=== PATIENT | female | born 1975 | race Caucasian/White ===

== ENCOUNTER → 2016-06-09 | Outpatient (CLI) | payer OTHER ==
[~2016-06-09] MED LIST: FAMO20TA13 PO; LEVO1TAB10 PO; PRED20TA PO
[2016-06-09 19:44] VITALS: BP 128/76
--- NOTE | 2016-06-09 19:44 | Urgent Care T Sheet Gen (E) ---
Intake General Temperature (Fahrenheit): 97.8 Pulse: 104 Blood Pressure Systolic: 128 Blood Pressure Diastolic: 76 Respirations: 97 Chief Complaint: cough Source: Patient History of Present Illness Initial Comments Pt notes sudden onset of cough and fever on Wednesday. Notes body aches. Cough keeping her awake at night. Has also been congested. She is a smoker and notes her cough is a tight barky like cough. Occasional wheezing. Taking NyQuil with no relief. No SOA. Allergies: Coded Allergies: No Known Allergies (Verified Allergy, 01/22/12) Home Meds Reported Medications Levonorgestrel-Eth Estradiol (Enpresse)1 Each Tablet1 Each PO DAILY 01/22/12 Famotidine (Pepcid)20 Mg [id number] Mg PO BID 01/22/12 Respiratory Constitutional Symptoms: See HPI Fever Malaise EENTM: See HPI Nose Congestion Respiratory: No No symptoms reported, See HPI CoughNo Orthopnea, No Short of breath, No Stridor, WheezingNo Other Cardiovascular: No symptoms reported Gastrointestinal/Abdominal: No symptoms reported Genitourinary: No symptoms reported Skin: No symptoms reported All Other Systems Reviewed Remaining Systems: All other systems reviewed with negative findings Past Vpbblsd-Jztmhk-Bsmieb Hx Patient's Social History Alcohol Use: Occasionally Uses Smoking Status: Current every day smoker Surgeries/Hospitalizations Hospitalization/Surgery Hx: right overy out at [place], 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 [id number] Respiratory Respiratory History: None Cardiovascular Cardiovascular History: None Neuro/Muscular Neuro/Muscular History: None Reproductive System Sexually Transmitted Diseases: No Genitouinary Genitourinary History: None Gastrointestinal GI/Endocrine History: Heartburn, Gallbladder problems, Abdominal pain, Nausea, Vomiting, Diarrhea Diabetes Diabetes: No Cancer History of Cancer?: No Cancer type: none Physical Exam Physical Exam General Appearance: WD/WN No apparent distress Eyes, Ears, Nose, Throat Ex: PERRL/EOMI TMs normal Pharynx normal Neck Exam: Non tender Full range of motion Normal inspection Normal thyroid Respiratory Exam: Lungs clear Normal breath sounds No respiratory distress Other (Pt noted to have a barky tight sounding cough) Cardiovascular Exam: Regular rate, rhythm No edema GI/ Exam: Non tender Normal bowel sounds No distention Skin Exam: No rashes Departure Urgent Care Impression Chief Complaint: cough Impression: Primary Impression: Cough Additional Impression: URI (upper respiratory infection) Qualified Code: J06.9 - Acute upper respiratory infection, unspecified Departure Disposition: HOME OR SELF-CARE Condition: Stable Referrals: ROMAN WRIGHT MD (PCP) Additional Instructions: Discussed with Patient that I am highly suspicious that she has Influenza. I did not swab her as she is "out of the recommended window" for treatment with Tamiflu. Would recommend symptomatic treatment including rest and push fluids. She notes that that tight barky cough at night is what bothers her the most. Take Prednisone as prescribed below for the reactive cough Rx written for Tussionex 1 tsp po [id number] prn cough. Disp: 4 oz. Discussed smoking cessation- pt is not interested at this time. Follow-up with Primary Care Provider in 10-14 days. Return to ER or UC if symptoms get worse or further concern. Discharge instructions verbally given to Patient. Patient verbalizes understanding of discharge instructions. Scripts Prednisone 20 Mg [id number] Mg PO as directed Inflammation #10 TAB Ref 0 Take 2 tabs once daily x 5 days Prov:LIGIA CORBETT 06/09/16 End of report . LIGIA CORBETT Jun 09, 2016 19:44
== END ==
LOC: MHUC 19:14
PROVIDERS: ATTEND Physician Assistant
DX: R05 Cough (principal); J06.9 Acute upper respiratory infection, unspecified
CPT/HCPCS: 99213